=== PATIENT | male | born 2000 | race Caucasian/White ===

== ENCOUNTER → 2021-03-13 | Outpatient (CLI) | payer BC ==
--- NOTE | 2021-03-13 12:41 | RAD ---
EXAMINATION: XR CHEST 2V CLINICAL HISTORY: Shortness of breath EXAM DATE/TIME: 03/13/2021 11:46 AM COMPARISON: None FINDINGS: Lines, Tubes, and Devices: None. Cardiomediastinal Silhouette: Within normal limits. Lungs and Pleura: No evidence of focal airspace consolidation, pleural effusion, or pneumothorax. Bones and Soft Tissues: No acute osseous abnormality. IMPRESSION: No evidence of acute cardiopulmonary abnormality. Electronically signed by: Roderick Arora DO (03/13/2021 12:38 PM) SIOMARA
== END ==
LOC: RAD 11:39
PROVIDERS: ATTEND Nurse Practitioner Family
DX: R06.02 Shortness of breath (principal)
CPT/HCPCS: 71046

== ENCOUNTER 2021-08-28 12:03 | Emergency (ER) | payer BC ==
[~2021-08-28] VITALS: Ht 188 cm; Wt 97.7 kg
[2021-08-28 13:18] LABS: BASO # 0.1 x10^3/uL (0.0-0.2); BASO % 1 % (0-3); EOS # 1.2 x10^3/uL (0.0-0.7); EOS % 17 % (0-3); HEMATOCRIT 42.9 % (39.0-53.0); HEMOGLOBIN 14.6 g/dL (13.0-17.5); LYMPH # 2.2 x10^3/uL (1.0-4.8); LYMPH % 31 % (24-48); MEAN CORPUSCULAR HEMOGLOBIN 32 pg (25-35); MEAN CORPUSCULAR HGB CONC 34 g/dL (31-37); MEAN CORPUSCULAR VOLUME 93 fL (79-100); MONO # 0.6 x10^3/uL (0.0-1.1); MONO % 8 % (0-9); NEUT # 3.2 x10^3uL (1.8-7.7); NEUT % 44 % (31-73); PLATELET COUNT 186 x10^3/uL (140-400); RED BLOOD COUNT 4.63 x10^6/uL (4.30-5.70); RED CELL DISTRIBUTION WIDTH 12.6 % (11.5-14.5); WHITE BLOOD COUNT 7.3 x10^3/uL (4.0-11.0)
[2021-08-28 13:21] LABS: CALCIUM 9.1 mg/dL (8.5-10.1); CREATININE 0.9 mg/dL (0.7-1.3); GFR 105.5; POTASSIUM 4.1 mmol/L (3.5-5.1)
[2021-08-28 13:27] LABS: ALBUMIN 4.1 g/dL (3.4-5.0); ALBUMIN/GLOBULIN RATIO 1.4 (1.0-1.7); TOTAL BILIRUBIN 0.5 mg/dL (0.2-1.0); TOTAL PROTEIN 7.1 g/dL (6.4-8.2)
--- NOTE | 2021-08-28 13:55 | RAD ---
Exam Date: 08/28/2021 1:[address] HEAD AND C-SPINE WO Indication: Reason: syncope, multiple falls / Spl. Instructions: / History: . One or more of the following dose reduction techniques were utilized: *Automated exposure control (AEC) *Adjustment of mA and/or kV according to patient size *Use of iterative reconstruction technique *CT scan done according to ALARA, or ALARA/IMAGE GENTLY EXAMINATION: CT OF THE HEAD WITHOUT CONTRAST INDICATION: Trauma, head injury, headache; TECHNIQUE: Noncontrast helical axial CT images of the head were obtained. FINDINGS: The ventricles and sulci are normal for the patient's stated age. There is no evidence of acute int racranial hemorrhage, extra-axial collection, mass effect, midline shift, or acute territorial infarc t. No lesion of the skull base or the calvarium is seen. The visualized mastoid air cells, and orbits are normal in appearance. There is partial opacification of the paranasal sinuses. IMPRESSION: No evidence for acute intracranial abnormality. EXAMINATION: CT OF THE CERVICAL SPINE WITHOUT CONTRAST Clinical Indication: Cervical spine pain after trauma Technique: Thin cut helical axial CT images through the cervical spine were obtained without contrast on a multi-detector CT scanner. Source data was then reconstructed into sagittal and coronal planes. Findings: Alignment is maintained without spondylolisthesis. Vertebral body heights are maintained without acute fracture. Disc spaces are preserved. No signific ant prevertebral soft tissue swelling is demonstrated. No severe osseous central canal stenosis is se en. Impression: No evidence of acute cervical spine fracture or subluxation. Electronically signed by: Wolf Cerrato MD (08/28/2021 1:53 PM) [id number]
[2021-08-28 14:14] VITALS: BP 149/83
--- NOTE | 2021-08-28 14:30 | PHYS DOC ---
Past History Additional Past Medical Histor: seasonal allergies, vasovagal syncopal episodes (HOLDEN LEWIS) Past Surgical History: No Surgical History (HOLDEN LEWIS) Additional Smoking Information: vaping Alcohol Use: Rarely (HOLDEN LEWIS) Attending Signature I have participated in the care of this patient and I have reviewed and agree w ith all pertinent clinical information above including history, exam, and recommendations. (KATHERIN BROOKS DO) General Adult EDM: Chief Complaint: SYNCOPE HPI: HPI: Patient is a 21 year old male who presents with syncopal episodes last night. Patient states that his girlfriend was attempting to pop a pimple on his chest. Patient was looking down at his just, putting his chin down into his chest "as far as possible" and attempting to walk. At that time, he became lightheaded and thought he was going to "pass out." He attempted to step backwards towards the bed, but when he fell hit the superior part of his occipital head on the bed frame. At that time, he began to bleed some, so he went to the bathroom and effort to clean it. He states at that time he experienced another syncopal episode and hit his nose in the bathroom. When he attempted to stand up from this syncopal episode, he had another one. Patient reports he has had syncopal events in the past while straining to defecate and when going to sleep. Patient denies any weakness/lightheadedness or headache prior to symptom onset last night. Patient denies amnesia, intractable nausea/vomiting, vision changes, seizure-like activity or other neurological symptoms. (HOLDEN LEWIS) Review of Systems: Review of Systems: Constitutional: Denies fever, chills or generalized weakness Eyes: Denies change in visual acuity, visual field deficits or discharge HENT: Denies ear pain, nasal congestion or sore throat Respiratory: Denies cough or shortness of breath Cardiovascular: Denies chest pain, palpitations or edema GI: Denies abdominal pain, nausea, vomiting, bloody stools or diarrhea : Denies dysuria or hematuria Musculoskeletal: Denies back pain or joint pain Integument: See HPI Neurologic: See HPI (HOLDEN LEWIS) Physical Exam: PE: Constitutional: Well developed, well nourished, no acute distress, non-toxic appearance. HENT: Normocephalic, abrasion noted to the superior right side of the occiput, bridge of the nose with multiple abrasions, bilateral external ears normal, nose normal. Eyes: PERRL, EOMI, conjunctiva normal, no discharge. Neck: Normal range of motion, no step-off, no tenderness, supple, no stridor. Cardiovascular: Heart regular rate and rhythm. No obvious murmurs, rubs or gallops. Lungs & Thorax: Bilateral breath sounds clear to auscultation. Skin: Warm, dry, no erythema, no rash. Back: No step-off, no midline tenderness. Extremities: No tenderness, no cyanosis, no clubbing, ROM intact, no edema, no obvious deformities. Neurologic: Alert and oriented x4, motor and sensory function grossly intact, steady and symmetrical upright gait, no focal deficits noted. (HOLDEN LEWIS) Current Patient Data: Labs: Laboratory Tests Test 08/28/21 12:44 White Blood Count 7.3 x10^3/uL (4.0-11.0) Red Blood Count 4.63 x10^6/uL (4.30-5.70) Hemoglobin 14.6 g/dL (13.0-17.5) Hematocrit 42.9 % (39.0-53.0) Mean Corpuscular Volume 93 fL (79-100) Mean Corpuscular Hemoglobin 32 pg (25-35) Mean Corpuscular Hemoglobin Concent 34 g/dL (31-37) Red Cell Distribution Width 12.6 % (11.5-14.5) Platelet Count 186 x10^3/uL (140-400) Neutrophils (%) (Auto) 44 % (31-73) Lymphocytes (%) (Auto) 31 % (24-48) Monocytes (%) (Auto) 8 % (0-9) Eosinophils (%) (Auto) 17 % (0-3) H Basophils (%) (Auto) 1 % (0-3) Neutrophils # (Auto) 3.2 x10^3uL (1.8-7.7) Lymphocytes # (Auto) 2.2 x10^3/uL (1.0-4.8) Monocytes # (Auto) 0.6 x10^3/uL (0.0-1.1) Eosinophils # (Auto) 1.2 x10^3/uL (0.0-0.7) H Basophils # (Auto) 0.1 x10^3/uL (0.0-0.2) Sodium Level 138 mmol/L (136-145) Potassium Level 4.1 mmol/L (3.5-5.1) Chloride Level 104 mmol/L (98-107) Carbon Dioxide Level 26 mmol/L (21-32) Anion Gap 8 (6-14) Blood Urea Nitrogen 12 mg/dL (8-26) Creatinine 0.9 mg/dL (0.7-1.3) Estimated GFR (Cockcroft-Gault) 105.5 BUN/Creatinine Ratio 13 (6-20) Glucose Level 92 mg/dL (70-99) Calcium Level 9.1 mg/dL (8.5-10.1) Total Bilirubin 0.5 mg/dL (0.2-1.0) Aspartate Amino Transferase (AST) 20 U/L (15-37) Alanine Aminotransferase (ALT) 36 U/L (16-63) Alkaline Phosphatase 74 U/L (46-116) Troponin I High Sensitivity 6 ng/L (4-75) Total Protein 7.1 g/dL (6.4-8.2) Albumin 4.1 g/dL (3.4-5.0) Albumin/Globulin Ratio 1.4 (1.0-1.7) Vital Signs: Vital Signs Date Time Temp Pulse Resp B/P (MAP) Pulse Ox O2 Delivery O2 Flow Rate FiO2 08/28/21 14:14 66 16 149/83 (105) 98 Room Air 08/28/21 13:43 72 16 131/74 (93) 97 Room Air 08/28/21 12:44 62 16 133/77 (95) 97 Room Air 08/28/21 12:18 98.6 68 16 134/70 (91) 97 Room Air (HOLDEN LEWIS) EKG: EKG: EKG Interpreted by Dr. Brooks at 1239: Regular rate and rhythm 68 bpm with no ectopic beats. QT 380 ms/QTc 409 ms. No STEMI. (HOLDEN LEWIS) Radiology/Procedures: Radiology/Procedures: PROCEDURE: CT HEAD AND CERVICAL SPINE WO Exam Date: 08/28/2021 1:[address] HEAD AND C-SPINE WO Indication: Reason: syncope, multiple falls / Spl. Instructions: / History: . One or more of the following dose reduction techniques were utilized: *Automated exposure control (AEC) *Adjustment of mA and/or kV according to patient size *Use of iterative reconstruction technique *CT scan done according to ALARA, or ALARA/IMAGE GENTLY EXAMINATION: CT OF THE HEAD WITHOUT CONTRAST INDICATION: Trauma, head injury, headache; TECHNIQUE: Noncontrast helical axial CT images of the head were obtained. FINDINGS: The ventricles and sulci are normal for the patient's stated age. There is no evidence of acute intracranial hemorrhage, extra-axial collection, mass effect, midline shift, or acute territorial infarct. No lesion of the skull base or the calvarium is seen. The visualized mastoid air cells, and orbits are normal in appearance. There is partial opacification of the paranasal sinuses. IMPRESSION: No evidence for acute intracranial abnormality. EXAMINATION: CT OF THE CERVICAL SPINE WITHOUT CONTRAST Clinical Indication: Cervical spine pain after trauma Technique: Thin cut helical axial CT images through the cervical spine were obtained without contrast on a multi-detector CT scanner. Source data was then reconstructed into sagittal and coronal planes. Findings: Alignment is maintained without spondylolisthesis. Vertebral body heights are maintained without acute fracture. Disc spaces are preserved. No significant prevertebral soft tissue swelling is demonstrated. No severe osseous central canal stenosis is seen. Impression: No evidence of acute cervical spine fracture or subluxation. Electronically signed by: Wolf Cerrato MD (08/28/2021 1:53 PM) [id number] (HOLDEN LEWIS) Heart Score: C/O Chest Pain: No (HOLDEN LEWIS) Course & Med Decision Making: Course & Med Decision Making Pertinent Labs and Imaging studies reviewed. (See chart for details) Patient is an otherwise healthy 21-year-old male with history of vasovagal syncopal episodes who presents with multiple syncopal episodes yesterday evening. According to the description of the onset of the symptoms, I do believe he experienced a vasovagal episode while attempting to view his girlfriend popping the pimple on his chest. After that time, I do not believe he had adequate time to recover between syncopal episodes. Work-up today will consist of labs that include troponin, EKG, head and neck CT plain. Work-up today is exceptionally unremarkable and very reassuring. Patient was counseled on ways to prevent/avoid vasovagal syncopal episodes. Patient's mother was contacted via phone and was concerned about repeat episodes, specifically while driving. I advised her that episodes such as this while driving are more common with epileptic conditions or narcolepsy. For reassu liat and further evaluation and management, patient was provided with follow-up information for Dr. Redman, neurologist. All of the patient and his mother's questions were answered. Strict return precautions were provided. Patient understands and is agreeable to discharge plan. (HOLDEN LEWIS) Indra Disclaimer: Indra Disclaimer: This electronic medical record was generated, in whole or in part, using a voice recognition dictation system. (HOLDEN LEWIS) Departure Departure: Impression: Primary Impression: Vasovagal syncopes Additional Impressions: Head contusion Qualified Codes: S00.83XA - Contusion of other part of head, initial encounter Facial abrasion Qualified Codes: S00.81XA - Abrasion of other part of head, initial encounter Scalp abrasion, non-infected Disposition: 01 HOME / SELF CARE / HOMELESS Condition: STABLE Referrals: KATHERIN GARCIA GORE CUTTER (PCP) JOANNA REDMAN MD Patient Instructions: Syncope, [id number] Additional Instructions: EMERGENCY DEPARTMENT GENERAL DISCHARGE INSTRUCTIONS Thank you for coming to [facility] (ED) today and trusting us with you care. We trust that you had a positive experience in our Emergency Department. If you wish to speak to the department management, you may call the director at [phone]. YOUR FOLLOW UP INSTRUCTIONS ARE FOLLOWS: 1. Follow up with your primary care doctor. If you do not have a primary doctor, please ask for a resource list of physicians or clinics that may be able to assist you with follow up care. 2. The emergency provider has interpreted your imaging studies, if any were ordered. The radiology activity specialist also reviewed them. If there is a change in the findings, you will be notified in 48 hours when at all possible. 3. If a lab test or culture has been done, your results will be reviewed and you will be notified if you need a change in treatment. 4. Follow instructions verbalized to you and refer to the printouts if needed. ADDITIONAL INSTRUCTIONS AND INFORMATION: 1. Your care today has been supervised by a physician who is specially trained in emergency care. Many problems require more than one evaluation for a complete diagnosis and treatment. We recommend that you schedule your follow up appointment as recommended to ensure complete treatment of you illness or injury. If you are unable to obtain follow up care and continue to have a problem, or if your condition worsens, we recommend that you return to the ED. 2. We are not able to safely determine your condition over the phone nor are we able to give sound medical advice over the phone. For these safety reasons, if you call for medical advice we will ask you to come to the ED for further evaluation. 3. If you have any questions regarding these discharge instructions please call the ED at [phone]. SAFETY INFORMATION: In the interest of safety, wellness, and injury prevention; we encourage you to wear your seat belt, if you smoke; quite smoking, and we encourage family to use a protective helmet for bicycling and other sporting events that present an increased risk for head injury. IF YOUR SYMPTOMS WORSEN OR NEW SYMPTOMS DEVELOP, OR YOU HAVE CONCERNS ABOUT YOUR CONDITION; OR IF YOUR CONDITION WORSENS WHILE YOU ARE WAITING FOR YOUR FOLLOW UP APPOINTMENT; EITHER CONTACT YOUR PRIMARY CARE DOCTOR, THE PHYSICIAN WHOSE NAME AND NUMBER YOU WERE GIVEN, OR RETURN TO THE ED IMMEDIATELY. Attending Signature I have participated in the care of this patient and I have reviewed and agree with all pertinent clinical information above including history, exam, and recommendations. (KATHERIN BROOKS DO) HOLDEN LEWIS Aug 28, 2021 14:30 KATHERIN BROOKS DO Aug 28, 2021 16:02
--- NOTE | 2021-08-28 18:34 | EKG ---
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
--- NOTE | 2021-08-30 04:19 | EKG ---
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
== END 2021-08-28 14:52 | disposition home or self-care (01) ==
LOC: ER 12:03
DX: S00.83XA Contusion of other part of head, initial encounter (principal); S00.81XA Abrasion of other part of head, initial encounter; S00.01XA Abrasion of scalp, initial encounter; R55 Syncope and collapse; F17.200 Nicotine dependence, unspecified, uncomplicated; W18.09XA Striking against other object with subsequent fall, initial encounter; Y93.89 Activity, other specified; Y92.89 Other specified places as the place of occurrence of the external cause; Y99.8 Other external cause status
CPT/HCPCS: 36415; 70450; 72125; 80053; 84484; 85025; 93005; 99285